=== PATIENT | male | born 1955 | race Asian ===

== ENCOUNTER 2019-05-24 11:33 | Emergency (ER) | payer MEDICARE, MEDICAID ==
[~2019-05-24] VITALS: Ht 167.6 cm; Wt 68.2 kg
[2019-05-24] MEDS ORDERED: GUAI120017 PEG (11:46)
[2019-05-24] MEDS ORDERED: ALOG6.252 PO (11:46)
[2019-05-24] MEDS ORDERED: ALLO100T PO ×2 (11:46→12:13)
[2019-05-24] MEDS ORDERED: ACET-2247 PO (11:46)
[2019-05-24 11:51] LABS: GLUCOSE,POINT OF CARE 165 MG/DL (70-110)
[2019-05-24] MEDS ORDERED: SEVE0.8P6 PO (12:13)
[2019-05-24] MEDS ORDERED: B,C/1TAB PO (12:13)
[2019-05-24] MEDS ORDERED: SIMV10TA97 PO (12:13)
[2019-05-24] MEDS ORDERED: HYDR500 PO (12:13)
[2019-05-24] MEDS ORDERED: SEVE800T17 PO (12:13)
[2019-05-24] MEDS ORDERED: ASPI-1182 PO (12:13)
[2019-05-24] MEDS ORDERED: METO25 PO (12:21)
[2019-05-24] MEDS ORDERED: 0.9% SODIUM CHLORIDE 10 ML SYRINGE IVP PRN (12:30)
[2019-05-24 12:48] LABS: BASOPHILS % (AUTO) 1.3 % (0.0-2.0); HEMOGLOBIN 11.3 g/dL (13.5-17.5); LYMPHOCYTES # (AUTO) 1.1 K/uL (1.0-4.8); LYMPHOCYTES % (AUTO) 17.7 % (22.0-44.0); MEAN CORPUSCULAR HEMOGLOBIN 26.2 pg (26.0-34.0); MEAN CORPUSCULAR HGB CONC 30.7 G/dL (31.0-37.0); MEAN CORPUSCULAR VOLUME 86 fL (80-100); MONOCYTES # (AUTO) 0.7 K/uL (0.1-1.0); MONOCYTES % (AUTO) 10.2 % (2.0-9.0); NEUTROPHILS # (AUTO) 4.5 K/uL (1.8-7.7); NEUTROPHILS % (AUTO) 69.8 % (40.0-70.0); PLATELET COUNT (AUTO) 182 K/uL (150-450); RED BLOOD CELL COUNT(AUTO) 4.32 MIL/uL (4.50-5.90); RED CELL DISTRIBUTION WIDTH 17.1 % (11.5-14.5)
[2019-05-24 12:57] LABS: CALCIUM, TOTAL 8.5 mg/dL (8.8-10.5); CREATININE 7.3 mg/dL (0.60-1.30)
[2019-05-24] MEDS ORDERED: ACETAMINOPHEN 500 MG TABLET PO ONE (13:00)
[2019-05-24 13:02] LABS: ALBUMIN 3.6 g/dL (3.4-5.0); BILIRUBIN,TOTAL 0.3 mg/dL (0.1-1.0); TOTAL PROTEIN, SERUM 7.5 g/dL (6.4-8.2)
[2019-05-24 13:04] LABS: LACTIC ACID 1.3 mmol/L (0.4-2.0)
[2019-05-24 13:07] LABS: PROTHROMBIN TIME 9.9 SEC (9.4-11.6)
[2019-05-24 13:18] LABS: INFLUENZA TYPE A NEGATIVE FOR TYPE A (NEGATIVE); INFLUENZA TYPE B NEGATIVE FOR TYPE B (NEGATIVE)
[2019-05-24] MEDS ORDERED: IPRATROPIUM BROMIDE 0.5 MG/2.5 ML NEB SOLUTION NEB ONE (13:45)
[2019-05-24] MEDS ORDERED: ALBUTEROL SULFATE 2.5 MG/0.5 ML NEB SOLUTION NEB ONE (13:45)
[2019-05-24] MEDS ORDERED: ALBUTEROL SULFATE HFA 90 MCG/PUFF 8 GM INHALER IH ONE (13:45)
[2019-05-24 14:11] VITALS: BP 134/81
== END 2019-05-24 14:35 | disposition home or self-care (01) ==
LOC: EMS 11:40
DX: J06.9 Acute upper respiratory infection, unspecified (principal); E11.22 Type 2 diabetes mellitus with diabetic chronic kidney disease; N18.6 End stage renal disease; M10.9 Gout, unspecified; Z79.899 Other long term (current) drug therapy; Z99.2 Dependence on renal dialysis; Z79.82 Long term (current) use of aspirin; Z98.890 Other specified postprocedural states
CPT/HCPCS: 83605; 84145; 87040; 87430; 87804; 93005; 94640; J3535

== ENCOUNTER → 2020-11-30 | Outpatient (CLI) | payer MEDICARE, MEDICAID ==
[~2020-11-30] MED LIST: ALLO100T PO; ALOG6.252 PO; ASPI-1444 PO; B,C/1TAB PO; HYDR500 PO; METO25 PO; SEVE800T17 PO; SIMV10TA97 PO
== END | disposition home or self-care (01) ==
LOC: RADMN 15:47
PROVIDERS: ATTEND Internal Medicine Nephrology
DX: Z11.1 Encounter for screening for respiratory tuberculosis (principal); I70.0 Atherosclerosis of aorta
CPT/HCPCS: 71045